=== PATIENT | male | born 1960 | race Asian ===

== ENCOUNTER 2020-12-15 05:09 | Emergency (ER) | payer OTHER ==
[~2020-12-15] VITALS: Ht 172.7 cm; Wt 83.6 kg
[2020-12-15] MEDS ORDERED: METF1000 PO (05:21)
[2020-12-15] MEDS ORDERED: HYPERTENSIVE PO (05:21)
[2020-12-15] MEDS ORDERED: IBUPROFEN 600 MG TABLET PO ONE (06:30)
[2020-12-15] MEDS ORDERED: ACETAMINOPHEN 500 MG TABLET PO ONE (06:30)
[2020-12-15] MEDS ORDERED: LIDOCAINE 5% TRANSDERMAL PATCH TD ONE (06:30)
[2020-12-15 06:52] VITALS: BP 215/123
== END 2020-12-15 06:53 | disposition home or self-care (01) ==
LOC: EMS 05:10
DX: M54.5 Low back pain (principal); E11.9 Type 2 diabetes mellitus without complications; I10 Essential (primary) hypertension; F17.210 Nicotine dependence, cigarettes, uncomplicated; Z79.84 Long term (current) use of oral hypoglycemic drugs
CPT/HCPCS: 99284